=== PATIENT | male | born 1985 | race Caucasian/White ===

== ENCOUNTER 2016-12-02 12:49 | Emergency (ER) | payer OTHER ==
--- NOTE | 2016-12-02 13:05 | CPEKG ---
Heart Rate: 53 RR Interval: 1132 P-R Interval: 164 QRSD Interval: 98 QT Interval: 428 QTC Interval: 402 P [place]: 76 QRS [place]: 90 T Wave [place]: 66 EKG Severity - OTHERWISE NORMAL ECG - EKG Impression: SINUS RHYTHM EKG Impression: BORDERLINE RIGHT AXIS DEVIATION Electronically Signed By: Viviana Vasques 03-Dec-2016 10:35:55
--- NOTE | 2016-12-02 13:05 | CPEKG ---
Heart Rate: 53 RR Interval: 1132 P-R Interval: 164 QRSD Interval: 98 QT Interval: 428 QTC Interval: 402 P [place]: 76 QRS [place]: 90 T Wave [place]: 66 EKG Severity - OTHERWISE NORMAL ECG - EKG Impression: SINUS RHYTHM EKG Impression: BORDERLINE RIGHT AXIS DEVIATION Electronically Signed By: Viviana Vasques 03-Dec-2016 10:35:55
[2016-12-02 13:22] VITALS: TEMP 98.2; O2SAT 96
--- NOTE | 2016-12-02 13:43 | EDPHY ---
H & P Time Seen by Provider: 12/02/16 13:16 HPI/ROS: CHIEF COMPLAINT: Lightheadedness HISTORY OF PRESENT ILLNESS: 31 year old male presents following an episode of lightheadedness. He was in [place] this morning for meetings, and took propranolol 2 hours ago, just prior to the meeting, to help reduce anxiety sx related to the meetings. While driving back from [place] around 12:30pm he began feeling dizzy, and as if he might pass out. He continued driving, became diaphoretic and noted weakness/ tingling in his left hand. He also felt discomfort in his neck and shoulder. He has recently started taking propranolol prior to meetings and has tolerated propranolol well, though he usually takes 1/2 tablet. He took one half dose yesterday and one full dose today around 10:00am. He has never taken propanolol on consecutive days. This morning he went for a run and ate breakfast as usual, but endorsees decreased fluid intake. Currently, he feels his symptoms are mostly resolved and he is no longer dizzy. His left hand continues to feel slightly weak. He denies headache, chest pain, shortness of breath, or other associated symptoms. No recent trauma to head or neck, chiropractic adjustments. REVIEW OF SYSTEMS: A 10 point review of systems was performed and is negative with the exception of the elements mentioned in the history of present illness. Past Medical/Surgical History: 1. Mitral valve prolapse 2. Hyperlipidemia 3. Anxiety Social History: Self employed. Lives in [place] with significant other. Smoking Status: Never smoked Physical Exam: General Appearance: Alert, pleasant Eyes: Pupils equal and round, no conjunctival pallor or injection ENT, Mouth: Mucous membranes moist Neck: Normal inspection Respiratory: Lungs are clear to auscultation Cardiovascular: Regular rate and rhythm. No murmur. Gastrointestinal: Abdomen is soft and non-tender Neurological: Alert, oriented x3, cranial nerves II through XII intact, motor 5/ 5, including left hand, sensory intact to light touch Skin: Warm and dry, no rash Extremities: Nontender, no pedal edema Vascular: radial pulse 2+ Psychiatric: Mood and affect normal Constitutional: Initial Vital Signs Temperature (C) 36.6 C 12/02/16 12:52 Heart Rate 42 L 12/02/16 12:52 Respiratory Rate 16 12/02/16 12:52 Blood Pressure 130/89 H 12/02/16 12:52 O2 Sat (%) 98 12/02/16 12:52 O2 Delivery Mode Room Air Allergies/Adverse Reactions: No Known Allergies Allergy (Verified 12/02/16 12:51) Home Medications: Medication Instructions Recorded Propranolol HCl [Inderal 40mg (*)] 40 mg PO 12/02/16 Medical Decision Making - Diagnostics EKG Interpretation: EKG interpreted by me reveals sinus rhythm, rate 53, borderline right axis deviation. Imaging Results: MRI of the brain read by the radiologist is unremarkable. Imaging: Discussed imaging studies w/ score caller Radiologist ED Course/Re-evaluation: 31 y/o male presents following an episode of lightheadedness and left-sided arm weakness and numbness. Exam unremarkable, the patient is neurologically intact. He is bradycardic around 38-42bmp, but blood pressure is normal and he states a heart rate in the 40s is normal for him. I suspect that the near syncopal episode is related to bradycardia from propranolol. The etiology of the left hand symptoms is unclear, and given his young age, and no risk factors, I doubt that this represents vascular compromise, CVA, TIA. However, neuroimaging is indicated in this patient. IV established. Plan to administer 1L IV NS. Patient remains asymptomatic. Heart rate has been in the 40s throughout his emergency department stay. Blood pressure has been adequate and there has been no significant dysrhythmia cardiac monitoring MRI of the brain is negative. I discussed this patient's presentation at length with him and warning signs discussed. If he needs to take a beta-estrella prior to meetings, he will try 1/ 2 tablet, as he has tolerated this dosage well in the past. Plan to discharge home in good condition. Follow up and return precautions discussed. The patient is comfortable with this plan. Differential Diagnosis: Differential diagnosis includes though is not limited to cardiac dysrhythmia, CVA, TIA, GI bleed, sepsis, hypoglycemia. - Data Points Medications Given: Discontinued Medications Sodium Chloride (Ns) 1,000 mls @ 0 mls/hr IV ONCE ONE PRN Reason: Wide Open Stop: 12/02/16 14:14 Last Admin: 12/02/16 14:17 Dose: 1,000 mls Sodium Chloride (Ns) 1,000 mls @ 0 mls/hr IV ONCE ONE; Wide Open PRN Reason: Protocol Stop: 12/02/16 14:53 Last Admin: 12/02/16 14:55 Dose: 1,000 mls Departure - Departure Disposition: Home, Routine, Self-Care Clinical Impression: Near syncope Condition: Good Instructions: Near Syncope (ED) Additional Instructions: If you need to take propranolol, take 1/2 tablet instead of 1 tablet. Referrals: Kieran Hollins DO [Doctor of Osteopathy] - 2-3 days, call for appt. Report Scribed for: Viviana Vasques Report Scribed by: Eileen Hylton Date of Report: 12/02/16 Time of Report: 13:43 Physician Review and Approval Statement: 12/02/16 13:43 Portions of this note were transcribed by a medical appointment scheduler. I personally performed a history, physical exam, medical decision making, and confirmed accuracy of information the transcribed note.
[2016-12-02] MEDS ORDERED: NS 1,000 ML IV ONE ×2 (14:13→14:52)
[2016-12-02 14:49] VITALS: BP 95/69; PULSE 42; RESP 20
== END 2016-12-02 15:37 | disposition home or self-care (01) ==
DX: R55 Syncope and collapse (principal); E86.9 Volume depletion, unspecified
CPT/HCPCS: 82947-QW